=== PATIENT | male | born 1945 | race Caucasian/White ===

== ENCOUNTER → 2020-10-28 | Outpatient (CLI) | payer MEDICARE ==
--- NOTE | 2020-10-28 13:45 | REP ---
INDICATION: PERSISTENT COUGH COMPARISON: None. TECHNIQUE: PA and lateral. FINDINGS: The mediastinum and cardiac silhouette are normal. The lung medina demonstrate chronic appearing interstitial changes without acute consolidation, effusion, or pneumothorax. The skeletal structures are intact and normal. IMPRESSION: Chronic interstitial changes are suggested. No focal consolidation. If the patient remains symptomatic consider chest CT for further investigation. <Electronically signed by Mike Mack > 10/28/20 0781
== END ==
LOC: M WUC 10:38
PROVIDERS: ATTEND Family Medicine Addiction Medicine
DX: R05 Cough (principal)